=== PATIENT | female | born 1955 | race Two or more races ===

== ENCOUNTER 2023-12-12 07:48 | Emergency (ER) | payer OTHER ==
[~2023-12-12] VITALS: Ht 152.4 cm; Wt 54.4 kg
[2023-12-12] MEDS ORDERED: CLONAZEPAM0.5 M1 PO (08:07)
[2023-12-12 08:55] LABS: PH,URINE 6.5 (5.0-8.0); URINE APPEARANCE Clear; URINE BILIRRUBIN Negative (NEGATIVE); URINE BLOOD Negative; URINE COLOR Yellow; URINE GLUCOSE Negative (NEGATIVE); URINE LEUKOCYTE Negative; URINE NITRATE Negative; URINE PROTEIN Negative (NEGATIVE); URINE UROBILINOGEN 0.2 E.U./dl
[2023-12-12 08:59] LABS: URINE BACTERIA 23.8 uL (0.0-1933); URINE EPITHELIAL CELLS 5.2 uL (0.0-38.8); URINE WBC 7.2 uL (0.0-23.2)
[2023-12-12] MEDS ORDERED: KETOROLAC TROMETHAMINE 60 MG VIAL IM ONE (09:15)
[2023-12-12 09:31] LABS: URINE RBC 1.8 uL (0.0-20.8)
[2023-12-12 09:37] LABS: HEMATOCRIT 39.8 % (36.0-45.00); HEMOGLOBIN 13.7 g/dL (12.0-15.00); MEAN CELL VOLUME 89.8 fL (80.00-100.00); MEAN CORPUSCULAR HEMOGLOBIN 30.9 pg (27.00-32.0); MEAN CORPUSCULAR HGB CONC 34.4 g/dl (32.0-36.0); PLATELET COUNT 306 K/uL (150-450); RED BLOOD COUNT 4.43 M/uL (4.00-6.00); RED CELL DISTRIBUTION WIDTH 13.4 % (11.5-14.5)
[2023-12-12 10:03] LABS: CALCIUM 9.4 mg/dL (8.5-10.1); CREATININE SERUM 0.82 mg/dL (0.55-1.02); GFR 68.92; POTASSIUM 3.72 mEq/L (3.5-5.1)
== END 2023-12-12 12:38 | disposition home or self-care (01) ==
LOC: ER 07:49
PROVIDERS: General Practice
DX: K57.92 Diverticulitis of intestine, part unspecified, without perforation or abscess without bleeding (principal); R10.9 Unspecified abdominal pain; Z88.2 Allergy status to sulfonamides
CPT/HCPCS: 36415; 74176; 96372; 99284; J1885

== ENCOUNTER 2024-03-19 01:15 | Inpatient (IN) | payer OTHER ==
[~2024-03-19] VITALS: Ht 152.4 cm; Wt 52.2 kg
[~2024-03-19 01:15] MED LIST: CLONAZEPAM0.5 M1 PO
[2024-03-19] MEDS ORDERED: HYOSCYAMINE SULFATE 0.125 MG TAB.SUBL SL STA (02:41)
[2024-03-19] MEDS ORDERED: 0.9 % SODIUM CHLORIDE 1,000 ML IV ONE (02:45)
[2024-03-19 03:30] LABS: URINE APPEARANCE Clear; URINE BILIRRUBIN Negative (NEGATIVE); URINE BLOOD Negative; URINE COLOR Yellow; URINE GLUCOSE Negative (NEGATIVE); URINE KETONE Negative (NEGATIVE); URINE LEUKOCYTE Negative; URINE NITRATE Negative; URINE PROTEIN Negative (NEGATIVE); URINE UROBILINOGEN 0.2 E.U./dl
[2024-03-19 03:33] LABS: URINE EPITHELIAL CELLS 2.4 uL (0.0-38.8); URINE WBC 5.2 uL (0.0-23.2)
[2024-03-19 03:49] LABS: ALBUMIN 4.3 gm/dL (3.4-5.0); BILIRUBIN TOTAL 0.61 mg/dL (0.3-1.2); CALCIUM 9.6 mg/dL (8.5-10.1); CREATININE SERUM 0.74 mg/dL (0.55-1.02); GFR 77.59; GLOBULINA 3.8 G/DL (2.4-3.5); POTASSIUM 3.98 mEq/L (3.5-5.1); TOTAL PROTEIN 8.1 gm/dL (6.4-8.2)
[2024-03-19 03:52] LABS: HEMATOCRIT 38.7 % (36.0-45.00); HEMOGLOBIN 13.6 g/dL (12.0-15.00); MEAN CELL VOLUME 89.8 fL (80.00-100.00); MEAN CORPUSCULAR HEMOGLOBIN 31.5 pg (27.00-32.0); MEAN CORPUSCULAR HGB CONC 35.1 g/dl (32.0-36.0); PLATELET COUNT 317 K/uL (150-450); RED BLOOD COUNT 4.31 M/uL (4.00-6.00)
[2024-03-19 03:53] LABS: URINE RBC 0.6 uL (0.0-20.8)
[2024-03-19] MEDS ORDERED: KETOROLAC TROMETHAMINE 30 MG VIAL IV STA (07:54)
[2024-03-19] MEDS ORDERED: FAMOTIDINE/PF 20 MG/2 ML VIAL IV SCH (10:49)
[2024-03-19] MEDS ORDERED: CIPROFLOXACIN IN 5 % DEXTROSE 400 MG/200 ML PIGGYBAG IV SCH (10:50)
[2024-03-19] MEDS ORDERED: METRONIDAZOLE/SODIUM CHLORIDE 500 MG/100 ML PIGGYBACK IV SCH (10:50)
[2024-03-19] MEDS ORDERED: RINGERS SOLUTION,LACTATED 1,000 ML IV SCH (11:00)
[2024-03-19] MEDS ORDERED: MORPHINE SULFATE 4 MG/ML CARTRIDGE IV PRN (11:00)
[2024-03-19 11:07] VITALS: BP 133/70
[2024-03-19] MEDS ORDERED: SIMETHICONE 125 MG CAPSULE PO ONE (11:30)
[2024-03-19 15:41] VITALS: BP 148/77
[2024-03-19 17:24] LABS: ob POSITIVE (NEGATIVE)
[2024-03-19] MEDS ORDERED: CLONAZEPAM 0.5 MG TABLET PO SCH (21:00)
[2024-03-20 01:39] VITALS: BP 120/70; O2SAT 98
[2024-03-20 06:57] LABS: HEMATOCRIT 36.4 % (36.0-45.00); HEMOGLOBIN 12.5 g/dL (12.0-15.00); MEAN CELL VOLUME 89.7 fL (80.00-100.00); MEAN CORPUSCULAR HEMOGLOBIN 30.9 pg (27.00-32.0); MEAN CORPUSCULAR HGB CONC 34.4 g/dl (32.0-36.0); PLATELET COUNT 279 K/uL (150-450); RED BLOOD COUNT 4.06 M/uL (4.00-6.00); RED CELL DISTRIBUTION WIDTH 14.1 % (11.5-14.5)
[2024-03-20 07:12] LABS: ALBUMIN 3.5 gm/dL (3.4-5.0); CALCIUM 8.9 mg/dL (8.5-10.1); CREATININE SERUM 0.76 mg/dL (0.55-1.02); GFR 75.23; PHOSPHOROUS 3.9 mg/dL (2.5-4.9); POTASSIUM 3.88 mEq/L (3.5-5.1)
[2024-03-20 07:57] VITALS: BP 154/68
[2024-03-20 18:07] VITALS: BP 126/76; O2SAT 97
[2024-03-21 01:02] VITALS: BP 97/62; O2SAT 96
[2024-03-21 09:11] VITALS: BP 127/64; O2SAT 98
== END 2024-03-21 15:35 | disposition home or self-care (01) | DRG 392 ==
LOC: ER 01:15 → MEDJ 11:38 → SEC-K 11:38 → MEDI 12:34 → MEDJ 13:09
PROVIDERS: General Practice; Internal Medicine; ADMIT Surgery; ATTEND Surgery
PROC: BW21ZZZ Computerized Tomography (CT Scan) of Abdomen and Pelvis (ICD-10-PCS; principal; 2024-03-19)
DX: K57.92 Diverticulitis of intestine, part unspecified, without perforation or abscess without bleeding (principal); K90.49 Malabsorption due to intolerance, not elsewhere classified